=== PATIENT | female | born 1970 | race Caucasian/White ===

== ENCOUNTER 2017-09-15 17:21 | Emergency (ER) | payer MEDICAID ==
[2017-09-15 17:31] VITALS: BP 100/67; PULSE 106; RESP 18; TEMP 97.9; O2SAT 97
--- NOTE | 2017-09-15 17:48 | EDPHY ---
H & P Stated Complaint: Urticarial rash primarily on torso x 3 days;?insect bites; may be Time Seen by Provider: 09/15/17 17:48 - Personal History LMP (Females 10-55): Unknown Current Tetanus Diphtheria and Acellular Pertussis (TDAP): Yes - Medical/Surgical History Hx Asthma: No Hx Chronic Respiratory Disease: No Hx Diabetes: No Hx Cardiac Disease: No Hx Renal Disease: No Hx Cirrhosis: No Hx Alcoholism: No Hx HIV/AIDS: No Hx Splenectomy or Spleen Trauma: No Other PMH: HTN, anxiety, miscarriage, rt ankle repair - Social History Smoking Status: Current every day smoker Constitutional: Initial Vital Signs Temperature (C) 36.6 C 09/15/17 17:25 Heart Rate 106 H 09/15/17 17:25 Respiratory Rate 18 09/15/17 17:25 Blood Pressure 100/67 09/15/17 17:25 O2 Sat (%) 97 09/15/17 17:25 O2 Delivery Mode Room Air Allergies/Adverse Reactions: No Known Allergies Allergy (Verified 09/15/17 17:27) Home Medications: Medication Instructions Recorded Hydralazine HCl 25 mg PO Q8 #30 tablet 09/15/17 Permethrin 5% [Elimite 5%] 60 naman TP TID #60 cream 09/15/17 hydrOXYzine HCL [hydrOXYzine HCL 25 mg PO 09/15/17 (RX)] Medical Decision Making ED Course/Re-evaluation: CHIEF COMPLAINT: Rash on abdomen HISTORY OF PRESENT ILLNESS: The patient is a 46 y/o female complaining of a pruritic rash on her abdomen that began 3 days ago. She is transient and living in the nursing home currently. She believes the rash is related to some type of bug bite. She denies fever, pain, dyspnea, nausea, vomiting, or other symptoms. REVIEW OF SYSTEMS: A 10 point review of systems was performed and is negative with the exception of the elements mentioned in the history of present illness. PHYSICAL EXAM: HR, BP, O2 Sat, RR. Temp noted General Appearance: Alert, well hydrated, appropriate, and non-toxic appearing. Head: Atraumatic without scalp tenderness or obvious injury Eyes: Pupils equal, round, reactive to light and accommodation, EOMI, no trauma , no injection. Nose: Atraumatic, no rhinorrhea, clear. Throat: Mucus membranes moist. Neck: Supple Respiratory: No distress Cardiovascular: Good capillary refill all extremities. Gastrointestinal: Abdomen is soft, nontender, non-distended, no masses, no rebound, no guarding, no peritoneal signs. Scattered linear, erythematous burrows across abdomen. Musculoskeletal: Normal active ROM of all extremities, atraumatic. Neurological: Alert, appropriate, and interactive. The patient has non-focal cranial nerves, motor, sensory, and cerebellar exam. Skin: Linear burrows on abdomen, good turgor, no nodules on palpation. Past medical history: HTN, anxiety Past surgical history: right ankle surgery Family history: Noncontributory Social history: Transient. Smoker. DIFFERENTIAL DIAGNOSIS: The differential diagnosis for the patient's rash included but was not limited to scabies infestation, bed bug bites, allergic reaction, staph infection, viral syndrome. MEDICAL DECISION MAKING: This is a transient 46 y/o female presenting with a 3-day history of pruritic erythematous rash that appeared after staying in the homeless nursing home. Rash is consistent with scabies. Patient will be discharged with standard scabies care instructions, Permethrin and hydralazine scripts, and referral to [facility] for followup. I've recommended using Elimite as directed on the packaging as well. Return precautions discussed. She agrees with plan. Departure - Departure Disposition: Home, Routine, Self-Care Clinical Impression: Scabies Condition: Good Instructions: Scabies (ED) Additional Instructions: 1. Use Elimite as directed on the packaging to treat scabies. 2. Use hydralazine as prescribed for itching. 3. Wash all of your clothing, bedding, and anything else washable in very hot water to kill scabies mites. Take a hot prolonged shower to kill any mites on your body. You may need to repeat this process several times. Be aware it is possible to transfer scabies to other people. 4. Follow up with your primary care provider for unimproved symptoms over the next week. Referrals: [facility],. [Clinic] - As per Instructions Prescriptions: Hydralazine HCl 25 mg PO Q8 #30 tablet Permethrin 5% [Elimite 5%] 60 naman TP TID #60 cream Report Scribed for: Joel Martinez Report Scribed by: Mady Nur Date of Report: 09/15/17 Time of Report: 18:09
[2017-09-16] MEDS ORDERED: PERMETHRIN 5% 60 GM CREAM TP SCH
== END 2017-09-15 18:23 | disposition home or self-care (01) ==
DX: B86 Scabies (principal); I10 Essential (primary) hypertension; F17.200 Nicotine dependence, unspecified, uncomplicated

== ENCOUNTER 2017-11-08 15:33 | Emergency (ER) | payer MEDICAID ==
[2017-11-08 15:42] VITALS: BP 105/85; PULSE 106; RESP 20; TEMP 97.7; O2SAT 97
--- NOTE | 2017-11-08 16:54 | EDPHY ---
H & P Stated Complaint: R eye sx 2 days ago, c/o headache redness and swelling Time Seen by Provider: 11/08/17 16:38 HPI/ROS: CHIEF COMPLAINT: Right eyelid swelling, abrasion to left eye, sinus pressure HISTORY OF PRESENT ILLNESS: Patient is a 47-year-old female who comes to the emergency department complaining of right eyelid swelling and drainage, abrasion to her left eyelid and sinus pressure. She is 3 days postoperative from Mohs procedure on her right medial eyelid for skin cancer. This was done in [place] by Dr. Barnes. The patient was discharged with erythromycin ointment to to use artificial tears. She has not been faithful with this. She also complains of some mild pressure in her sinus region. No fever. No headache REVIEW OF SYSTEMS: Constitutional: denies: chills, fever, recent illness, recent injury EENTM: See HPI denies: blurred vision, double vision, nose congestion Respiratory: denies: cough, shortness of breath Cardiac: denies: chest pain, irregular heart rate, lightheadedness, palpitations Gastrointestinal/Abdominal: denies: abdominal pain, diarrhea, nausea, vomiting, blood streaked stools Genitourinary: denies: dysuria, frequency, hematuria, pain Musculoskeletal: denies: joint pain, muscle pain Skin: denies: lesions, rash, jaundice, bruising Neurological: denies: headache, numbness, paresthesia, tingling, dizziness, weakness Hematologic/Lymphatic: denies: blood clots, easy bleeding, easy bruising Immunologic/allergic: denies: HIV/AIDS, transplant EXAM: GENERAL: Well-appearing, well-nourished and in no acute distress. HEAD: Atraumatic, normocephalic. EYES: Patient has swelling to right upper and lower eyelid with mild clear discharge. No conjunctival inflammation. Wound clean and intact to be Pupils equal round and reactive to light, extraocular movements intact, sclera anicteric, conjunctiva are normal. She has a minor abrasion to the medial aspect of her left eyelid. ENT: TMs normal, nares patent, oropharynx clear without exudates. Moist mucous membranes. NECK: Normal range of motion, supple without lymphadenopathy or JVD. LUNGS: Breath sounds clear to auscultation bilaterally and equal. No wheezes rales or rhonchi. HEART: Regular rate and rhythm without murmurs, rubs or gallops. ABDOMEN: Soft, nontender, normoactive bowel sounds. No guarding, no rebound. No masses appreciated. BACK: No CVA tenderness, no spinal tenderness, step-offs or deformities EXTREMITIES: Normal range of motion, no pitting or edema. No clubbing or cyanosis. NEUROLOGICAL: Cranial nerves II through XII grossly intact. Normal speech, normal gait. 5/5 strength, normal movement in all extremities, normal sensation PSYCH: Normal mood, normal affect. SKIN: Warm, dry, normal turgor, no visible rashes or lesions. Source: Patient Exam Limitations: No limitations - Personal History Current Tetanus/Diphtheria Vaccine: Yes Current Tetanus Diphtheria and Acellular Pertussis (TDAP): Yes Tetanus Vaccine Date: < 10 years - Medical/Surgical History Hx Asthma: No Hx Chronic Respiratory Disease: No Hx Diabetes: No Hx Cardiac Disease: No Hx Renal Disease: No Hx Cirrhosis: No Hx Alcoholism: No Hx HIV/AIDS: No Hx Splenectomy or Spleen Trauma: No Other PMH: HTN, anxiety, miscarriage, rt ankle repair. right eye sx - Family History Significant Family History: No pertinent family hx - Social History Smoking Status: Current every day smoker Constitutional: Initial Vital Signs Temperature (C) 36.5 C 11/08/17 15:40 Heart Rate 106 H 11/08/17 15:40 Respiratory Rate 20 11/08/17 15:40 Blood Pressure 105/85 H 11/08/17 15:40 O2 Sat (%) 97 11/08/17 15:40 O2 Delivery Mode Room Air Allergies/Adverse Reactions: No Known Allergies Allergy (Verified 11/08/17 15:39) Home Medications: Medication Instructions Recorded Erythromycin 11/08/17 Medical Decision Making ED Course/Re-evaluation: I discussed the case with Dr. Mccall who is on-call for Dr. Barnes. He states that some postoperative blepharitis is not unusual and encouraged her to use the erythromycin ointment more faithfully up to 4 times per day and they will follow up with her in their office on Friday. We discussed this plan with the patient and she agrees. She states she does not have eyedrops. Will give her some here. Differential Diagnosis: Partial list of the Differential diagnosis considered include but were not limited to; blepharitis, postoperative infection, conjunctivitis, contusion, abrasion, sinusitis and although unlikely based on the history and physical exam , I also considered intracranial hemorrhage, abscess. I discussed these differential diagnoses and the plan with the patient as well as the usual and expected course. The patient understands that the diagnosis is provisional and that in medicine we are not always correct and that further workup is often warranted. Usual and customary warnings were given. All of the patient's questions were answered. The patient was instructed to return to the emergency department should the symptoms at all worsen or return, otherwise to followup with the physician as we discussed. - Data Points Medications Given: Discontinued Medications Ibuprofen (Motrin) 600 mg PO EDNOW ONE Stop: 11/08/17 17:03 Last Admin: 11/08/17 17:18 Dose: 600 mg Departure - Departure Disposition: Home, Routine, Self-Care Clinical Impression: Blepharitis of eyelid of right eye Qualifiers: Blepharitis type: unspecified type Eyelid: both upper and lower Qualified Code( s): H01.001 - Unspecified blepharitis right upper eyelid; H01.002 - Unspecified blepharitis right lower eyelid; H01.002 - Unspecified blepharitis right lower eyelid Condition: Fair Instructions: Blepharitis (ED) Additional Instructions: Continue using the erythromycin ointment 4 times per day, place it inside of your eyelid. Use the eyedrops every 4-6 hours. Take ibuprofen as needed for pain. The content production specialist wishes to follow up with you on Friday or Friday. Referrals: Anika Dumas MD [Non Staff Provider (MD)] - 1-2 days without fail NONE *PRIMARY CARE P,. [Primary Care Provider] - As per Instructions
[2017-11-08] MEDS ORDERED: IBUPROFEN 600 MG TAB PO ONE (17:02)
== END 2017-11-08 17:25 | disposition home or self-care (01) ==
DX: H01.002 Unspecified blepharitis right lower eyelid (principal); H01.001 Unspecified blepharitis right upper eyelid; I10 Essential (primary) hypertension; F17.200 Nicotine dependence, unspecified, uncomplicated

== ENCOUNTER 2018-05-29 03:00 | Emergency (ER) | payer MEDICAID ==
--- NOTE | 2018-05-29 03:04 | EDPHY ---
H & P Stated Complaint: L foot and ankle pain Time Seen by Provider: 05/29/18 03:02 HPI/ROS: HPI The patient presents with medical clearance for [facility] complaining of left foot pain on the plantar surface near her heel. The patient says that she injured it about 2 weeks ago and has ongoing pain. She says she had an x-ray of her ankle but not of her foot 2 weeks ago. She is able to walk without difficulty. The pain feels like an ache and is mild in severity.. REVIEW OF SYSTEMS Constitutional: No fever, no chills. Musculoskeletal: No back pain. Skin: No rashes. Neurological: No headache. PMHx: Soc Hx: Currently arrested and headed to [facility] PHYSICAL General Appearance: Alert, no distress, wearing a spit mask Respiratory: Breathing comfortably Neurological: A&O, moves all extremities Skin: Warm and dry, no rashes Extremities: Normal appearance of the left foot and ankle, there is full range of motion of the toes and the ankle, there are no areas of tenderness, there is no erythema, warmth, edema, laceration or abrasion Psychiatric: Patient is oriented X 3, there is no agitation Source: Patient, EMS Exam Limitations: No limitations - Personal History Tetanus Vaccine Date: < 10 years - Medical/Surgical History Hx Asthma: No Hx Chronic Respiratory Disease: No Hx Diabetes: No Hx Cardiac Disease: No Hx Renal Disease: No Hx Cirrhosis: No Hx Alcoholism: No Hx HIV/AIDS: No Hx Splenectomy or Spleen Trauma: No Other PMH: HTN, anxiety, miscarriage, rt ankle repair. right eye sx - Social History Smoking Status: Current every day smoker Allergies/Adverse Reactions: No Known Allergies Allergy (Verified 05/29/18 03:06) Home Medications: Medication Instructions Recorded Erythromycin 11/08/17 Medical Decision Making Differential Diagnosis: 47-year-old female here for medical clearance for [facility]. She is complaining of left foot pain for the last 2 weeks. She is ambulatory with a normal exam. She will be medically clear for [facility]. Differential diagnosis considered include foot sprain, ankle sprain, foot fracture. Departure - Departure Disposition: Law Enforcement/Court/[facility] Clinical Impression: Left foot pain, Medical clearance for incarceration Condition: Good Instructions: Arthralgia (ED) Additional Instructions: You are medically clear for [facility]. Referrals: [facility],. [Clinic] - As per Instructions
[2018-05-29 03:09] VITALS: BP 121/65
== END 2018-05-29 03:12 ==
LOC: EDUNIT#
DX: M79.672 Pain in left foot (principal); F17.200 Nicotine dependence, unspecified, uncomplicated